=== PATIENT | female | born 1975 | race Caucasian/White ===

== ENCOUNTER 2016-10-26 11:12 | Emergency (ER) | payer OTHER ==
[~2016-10-26 11:12] MED LIST: ACETAMINOPHEN325 MG PO; FOLIC ACID1 MG PO; LEVAQUIN750 MG PO; NEURONTIN600 MG PO; NICOTINE PATCH1 EACH TOP; OMEPRAZOLE20 MG PO; ONCE DAILY1 EACH PO; PREDNISONE10 MG PO; PROAIR HFA8.5 GM IH; SPIRIVA18 MCG IH; SYMBICORT 16010.2 GM IH; VALIUM5 MG PO; VITAMIN B-1100 MG PO
== END 2016-10-26 13:55 | disposition home or self-care (01) ==
LOC: ER 11:12
DX: R07.89 Other chest pain (principal); I10 Essential (primary) hypertension; F20.9 Schizophrenia, unspecified; Z90.710 Acquired absence of both cervix and uterus; F17.210 Nicotine dependence, cigarettes, uncomplicated; Z86.73 Personal history of transient ischemic attack (TIA), and cerebral infarction without residual deficits; Z88.0 Allergy status to penicillin; Z88.8 Allergy status to other drugs, medicaments and biological substances; Z79.899 Other long term (current) drug therapy
CPT/HCPCS: 36415

== ENCOUNTER 2017-01-15 13:09 | Emergency (ER) | payer OTHER | END 2017-01-15 15:18 | disposition home or self-care (01) | LOC: ER 13:09 | DX: S06.9X9A Unspecified intracranial injury with loss of consciousness of unspecified duration, initial encounter (principal); S90.31XA Contusion of right foot, initial encounter; S00.81XA Abrasion of other part of head, initial encounter; K21.9 Gastro-esophageal reflux disease without esophagitis; I10 Essential (primary) hypertension; F17.210 Nicotine dependence, cigarettes, uncomplicated; Z90.711 Acquired absence of uterus with remaining cervical stump; Z86.73 Personal history of transient ischemic attack (TIA), and cerebral infarction without residual deficits; Z79.899 Other long term (current) drug therapy; Z88.0 Allergy status to penicillin; Z88.8 Allergy status to other drugs, medicaments and biological substances; W21.11XA Struck by baseball bat, initial encounter ==